=== PATIENT | male | born 1945 | race Caucasian/White ===

== ENCOUNTER → 2018-02-18 12:45 | Outpatient (CLI) | payer MEDICARE, BC, SELFPAY | PROVIDERS: PCP Family Medicine; Visit Provider Family Medicine | DX: M81.0 Age-related osteoporosis without current pathological fracture (principal) | CPT/HCPCS: 77080 ==

== ENCOUNTER 2018-07-07 18:25 | Emergency (ER) | payer MEDICARE, BC, SELFPAY ==
[2018-07-07 18:32] VITALS: BP 180/88; PULSE 75; RESP 16; TEMP 36.6; O2SAT 97
--- NOTE | 2018-07-07 18:40 | ED_ITS ---
HPI - Extremity Problem <SOLA Lucas - Last Filed: 07/07/18 21:33> General Chief complaint: Extremity Problem,Nontraumatic Stated complaint: SWELLING RIGHT ARM VEINS Time Seen by Provider: 07/07/18 18:40 Source: patient Mode of arrival: ambulatory Limitations: no limitations History of Present Illness HPI Narrative: 72-year-old male with history of reflux disease and is a nonsmoker here for complaint swelling to a vein to his right upper extremity forearm that he noticed earlier today. He denies any trauma to the right upper extremity. He denies any pain to the right upper extremity. He has full range of motion. 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 He denies any other concerns or complaints at this timeframe. Related Data Home Medications Medication Instructions Recorded Confirmed aspirin [Aspir-81] 81 mg PO DAILY 07/07/18 07/07/18 lovastatin 10 mg PO DAILY 07/07/18 07/07/18 ranitidine HCl 300 mg PO BEDTIME 07/07/18 07/07/18 Allergies Allergy/AdvReac Type Severity Reaction Status Date / Time bee venom protein (honey bee) Allergy Verified 07/07/18 18:35 Review of Systems <SOLA Lucas - Last Filed: 07/07/18 21:33> Constitutional Denies chills, Denies fever(s), Denies lethargy and Denies weakness Eyes Denies change in vision, Denies eye discharge, Denies irritation and Denies loss of vision ENT Ears, Nose, Mouth, and Throat: Denies change in voice, Denies neck pain and Denies sore throat Cardiovascular Denies chest pain, Denies irregular heart rhythm, Denies lightheadedness, Denies palpitations, Denies dyspnea, Denies dyspnea on exertion and Denies orthopnea Respiratory Denies cough, Denies dyspnea, Denies dyspnea on exertion and Denies wheezing Gastrointestinal Gastrointestinal: Denies abdominal pain, Denies change in bowel habits, Denies diarrhea, Denies nausea and Denies vomiting Genitourinary Denies hematuria, Denies flank pain, Denies urinary incontinence and Denies urinary urgency Musculoskeletal Denies neck pain Comments: Swelling to vein to right forearm Integumentary/Breasts Denies pruritus, Denies erythema, Denies rash and Denies wounds Neurologic Denies confusion, Denies loss of vision and Denies weakness Psychiatric Denies anxiety, Denies confusion, Denies depression, Denies homicidal ideation and Denies suicidal ideation Endocrine Denies palpitations Hematologic/Lymphatic Denies easy bruising Allergic/Immunologic Denies wheezing Exam <SOLA Lucas - Last Filed: 07/07/18 21:33> Initial Vital Signs Initial Vital Signs: Vital Signs Temperature 98 F 07/07/18 18:32 Pulse Rate 75 07/07/18 18:32 Respiratory Rate 16 07/07/18 18:32 Blood Pressure 180/88 H 07/07/18 18:32 Pulse Oximetry 97 07/07/18 18:32 Const General: cooperative and well developed Nutritional Appearance: well nourished Orientation: alert, awake, oriented x3 and not confused HENMT Mouth: oral mucosae normal and moist mucous membranes Eyes Conjunctivae: conjunctivae normal Sclera: sclerae normal Pupils: PERRL EOM: EOM intact bilaterally Resp Effort & Inspection: normal respiratory effort, able to speak in complete sentences, no respiratory distress and no use of accessory muscles Auscultation: clear to auscultation bilaterally, no rales, no rhonchi and no wheezes Cardio Rate: regular rate Rhythm: regular rhythm Heart Sounds: no click, no gallops, no murmurs and no rubs Pulses: normal peripheral pulses Skin General: no rashes or lesions noted, No jaundice and No petechiae Neuro General: alert, oriented x3, gait normal and no focal motor deficits Speech: speech normal Extrem Other: Right upper extremity with no signs of trauma. No erythema. No swelling. No tenderness on palpation. Distal sensation is intact. Distal pulses are intact. Pain to the dorsum of the right forearm radial aspect appears to be slightly more coarse than veins to the forearm or other forearm. With elevation of the right forearm the vein empties <Ehsan Marcano DO - Last Filed: 07/11/18 20:43> Initial Vital Signs Initial Vital Signs: Vital Signs Temperature 98 F 07/07/18 18:32 Pulse Rate 75 07/07/18 18:32 Respiratory Rate 16 07/07/18 18:32 Blood Pressure 180/88 H 07/07/18 18:32 Pulse Oximetry 97 07/07/18 18:32 Course <SOLA Lucas - Last Filed: 07/07/18 21:33> Orders Ordered: ED Orders 07/07/18 19:18 US periph venous up extrem rt Stat Vital Signs - 8 hr 07/07/18 18:32 07/07/18 19:30 Temperature 98 F Pulse Rate 75 67 Respiratory Rate 16 18 Blood Pressure 180/88 H Blood Pressure [Left Arm] 159/83 H Pulse Oximetry 97 100 <Ehsan Marcano DO - Last Filed: 07/11/18 20:43> Orders Ordered: ED Orders 07/07/18 19:18 US periph venous up extrem rt Stat Vital Signs - 8 hr 07/07/18 18:32 07/07/18 19:30 Temperature 98 F Pulse Rate 75 67 Respiratory Rate 16 18 Blood Pressure 180/88 H Blood Pressure [Left Arm] 159/83 H Pulse Oximetry 97 100 MDM - Extremity (Nontraumatic) <SOLA Lucas - Last Filed: 07/07/18 21:33> Imaging Data Venous US: Radiologist's impression: [place] [address] Ultrasound Report Signed Patient: STEPHANIE GORDILLO#: [id number] : 8Acct:[id number] Age/Sex: 72 / MDate of Service: 07/07/18 Loc: ED Accession Number: [id number] Procedure: US periph venous up extrem rt Ordering Provider: Santiago Watts PROCEDURE: US PERIPH VENOUS UP EXTREM RT INDICATIONS: PROMINENT RIGHT WRIST VEIN TECHNIQUE: Real-time imaging, as well as color and pulse Doppler interrogation, was performed of the right upper extremity deep veins from the inferior neck to the antecubital fossa. COMPARISON: None. FINDINGS: The internal jugular vein, visualized portions of the subclavian vein , axillary, and brachial veins are free of intraluminal thrombus. Where physically possible, the veins are normally compressible. Color and pulse Doppler demonstrate normal intraluminal flow, with expected phasicity and pulsatility. Additional scanning of the cephalic and basilic veins of the superficial system demonstrate normal compressibility, without thrombus. IMPRESSION: No DVT in the right upper extremity. Dictated by: Deepak Rich M.D. on 07/07/2018 at 20:15 Approved by: Deepak Rich M.D. on 07/07/2018 at 20:19 MDM Narrative Medical decision making narrative: Ultrasound of the right upper extremity was negative for any DVT. On exam mild engorgement to a vein into the right forearm area. Blood pressure was elevated today in the emergency room. Will have patient monitor his blood pressures and bring results to his primary care provider for follow-up for evaluation of hypertension. Follow up with primary care provider next week. Return emergency room for any worsening symptoms Discharge Plan Departure Patient Disposition: Home Clinical Impression: Feared condition not demonstrated Discharge Date/Time: 07/07/18 20:10 Interventions: ED Discharge Assessment Last Done: 07/07/18 20:10 Instructions: Recommendations to Help Prevent High Blood Pressure Activity Restrictions/Additional Instructions: Ultrasound was obtained of the right upper extremity was negative for any blood clots. Various conditions can cause some increased volume of the veins to her extremities such as temperature, hydration and activity levels. Normal exam today. Blood pressure was elevated in the emergency room. Monitor her blood pressure and bring results with you to your primary care provider for further evaluation ensure no high blood pressure. For any worsening symptoms return to the emergency room. Prescriptions: No Action lovastatin 10 mg Tablet 10 mg PO DAILY RF: 0 ranitidine HCl 300 mg Capsule 300 mg PO BEDTIME RF: 0 aspirin [Aspir-81] 81 mg Tablet,Delayed Release (Dr/Ec) 81 mg PO DAILY RF: 0 Referrals: Ollie Francis [Primary Care Provider] - <Ehsan Marcano DO - Last Filed: 07/11/18 20:43> [facility] ED Attending Zac Attestation: I was immediately available in the department for consultation. Documentation has been reviewed. I agree with assessment and plan.
--- NOTE | 2018-07-07 19:04 | PC.NURSE ---
Pt sent by his doctor on [facility] to be evaluated. He woke up today and noted the veins on his right forearm and hand were bulging much more. He has also had some right arm pain. 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 No swelling or redness is noted to the arm. Radial pulses are equal bilaterally.
--- NOTE | 2018-07-07 19:18 | DI.US.S_ITS ---
PROCEDURE: US PERIPH VENOUS UP EXTREM RT INDICATIONS: PROMINENT RIGHT WRIST VEIN TECHNIQUE: Real-time imaging, as well as color and pulse Doppler interrogation, was performed of the right upper extremity deep veins from the inferior neck to the antecubital fossa. COMPARISON: None. FINDINGS: The internal jugular vein, visualized portions of the subclavian vein, axillary, and brachial veins are free of intraluminal thrombus. Where physically possible, the veins are normally compressible. Color and pulse Doppler demonstrate normal intraluminal flow, with expected phasicity and pulsatility. Additional scanning of the cephalic and basilic veins of the superficial system demonstrate normal compressibility, without thrombus. IMPRESSION: No DVT in the right upper extremity. Dictated by: Deepak Rich M.D. on 07/07/2018 at 20:15 Approved by: Deepak Rich M.D. on 07/07/2018 at 20:19
[2018-07-07 19:30] VITALS: BP 159/83; PULSE 67; RESP 18; O2SAT 100
== END 2018-07-07 20:10 | disposition home or self-care (01) ==
PROVIDERS: Emergency Provider Nurse Practitioner Family; PCP Family Medicine
DX: M79.89 Other specified soft tissue disorders (principal)
CPT/HCPCS: 93971; 99282; 99284

== ENCOUNTER → 2022-02-26 11:06 | Outpatient (CLI) | payer MEDICARE, BC, SELFPAY | PROVIDERS: PCP Family Medicine; Referring Provider Family Medicine; Visit Provider Family Medicine | DX: M81.0 Age-related osteoporosis without current pathological fracture (principal); Z13.820 Encounter for screening for osteoporosis | CPT/HCPCS: 77080 ==

== ENCOUNTER → 2023-09-09 09:38 | Outpatient (CLI) | payer MEDICARE, SELFPAY ==
--- NOTE | 2023-09-09 | DI.US.S_ITS ---
PROCEDURE: US ABDOMEN COMPLETE INDICATIONS: Unspecified abdominal pain TECHNIQUE: Real-time scanning was performed of the abdominal and retroperitoneal organs, with image documentation. COMPARISON: None. FINDINGS: Liver: The liver demonstrates normal size. The liver demonstrates generalized moderately increased echogenicity. This decreases ultrasound sensitivity for detection of hepatic masses. The main portal vein demonstrates normal size and demonstrates normal appearing, hepatopetal flow. The left lower lobe is not well seen, secondary to overlying bowel gas. Gallbladder: No findings of gallstones or sludge are seen. The gallbladder wall is not thickened, measuring 3 mm or less. No specific pericholecystic fluid is seen. The sonographic Dial sign is negative. Biliary ducts: Intrahepatic bile ducts are non-dilated. Extrahepatic bile duct caliber measures 6 mm. Normal is 6-7 mm or less in diameter, or 10 mm or less post-cholecystectomy. Pancreas: Not well seen, obscured by overlying bowel gas. Spleen: Spleen is normal in size and homogeneous in echotexture. Kidneys: Kidneys are normal in size and echotexture. Right kidney measures 9.3 cm long; left kidney measures 9.5 cm long. No hydronephrosis or nephrolithiasis. No solid masses. Simple left renal cysts are seen, with the largest seen inferiorly measuring 5.4 cm. Aorta: Visualized aorta is normal in caliber at less than 3 cm. Iliacs: Proximal common iliac arteries are normal in caliber at less than 2.5 cm. IVC: Intrahepatic inferior vena cava is patent. Miscellaneous: No free abdominal fluid. IMPRESSION: No imaging explanation is found for this patient's presenting symptoms. The liver demonstrates increased echogenicity. This finding is nonspecific, yet it is most commonly attributed to fatty infiltration. Simple left liver cysts are incidentally noted. Dictated by: Alfa Mcpherson M.D. on 09/09/2023 at 16:16 Approved by: Alfa Mcpherson M.D. on 09/09/2023 at 16:17
== END ==
PROVIDERS: PCP Family Medicine; Referring Provider Family Medicine; Visit Provider Family Medicine
DX: K76.89 Other specified diseases of liver (principal); R10.9 Unspecified abdominal pain
CPT/HCPCS: 76700